=== PATIENT | female | born 1955 | race Two or more races ===

== ENCOUNTER 2024-10-30 07:07 | Day surgery (SDC) | payer OTHER ==
[2024-10-30] MEDS ORDERED: MIDAZOLAM HCL 2 MG/2 ML VIAL IV ONE (10:30)
[2024-10-30] MEDS ORDERED: fentaNYL CITRATE 50 MCG/ML AMPUL IV PUSH ONE (10:30)
[2024-10-30] MEDS ORDERED: DIPHENHYDRAMINE HCL 50 MG/ML VIAL 1ML IV ONE (10:30)
== END 2024-10-30 11:30 | disposition home or self-care (01) ==
LOC: AMB-ENDOS 07:07 → CIR.AMB 15:00
PROVIDERS: ATTEND Colon & Rectal Surgery
DX: D12.5 Benign neoplasm of sigmoid colon (principal); K63.5 Polyp of colon; Z12.11 Encounter for screening for malignant neoplasm of colon